=== PATIENT | male | born 1945 | race American Indian/Alaskan Native ===

== ENCOUNTER 2017-09-11 15:02 | Emergency (ER) | payer MEDICARE ==
[2017-09-11 15:02] VITALS: BMI 25.0
[2017-09-11 15:11] VITALS: TEMP 97.6
--- NOTE | 2017-09-11 15:38 | C.PDOC ---
History Of Present Illness 71 year old male presents to the ED with c/o new onset urinary retention since yesterday. Patient c/o "urine dribs and drabs." Reports pelvic distention. Denies nausea, vomiting, fever, history of BPH. NEW ONSET URINARY RETENTION SINCE YEST. CO "URINE DRIBS AND DRABS", +PELVIC DISTENTION. NO NV, FEVER. DENIES HO BPH EXAM MOD DIST NONTOXIC ABD +SUPRAPUB DIST NONTEND REMAINDER NEG Time Seen by Provider: 09/11/17 15:25 Chief Complaint (Nursing): Male Genitourinary History Per: Patient History/Exam Limitations: no limitations Onset/Duration Of Symptoms: Hrs Current Symptoms Are (Timing): Still Present Associated Symptoms: denies: Fever, Chills, Vomiting Past Medical History Reviewed: Historical Data, Nursing Documentation, Vital Signs Vital Signs: Last Vital Signs Temp 97.6 F 09/11/17 15:10 Pulse 78 09/11/17 17:11 Resp 16 09/11/17 17:11 BP 135/84 09/11/17 17:11 Pulse Ox 98 09/11/17 17:11 - Medical History PMH: No Chronic Diseases Surgical History: No Surg Hx Family History: States: Unknown Family Hx - Social History Hx Alcohol Use: Yes Hx Substance Use: No - Immunization History Hx Tetanus Toxoid Vaccination: No Hx Influenza Vaccination: No Hx Pneumococcal Vaccination: No Review Of Systems Constitutional: Negative for: Fever Gastrointestinal: Negative for: Vomiting Genitourinary: Positive for: Other (urinary retention ) Physical Exam - Physical Exam Appears: Non-toxic, Other (in moderate distress ) Skin: Normal Color, Warm, Dry Head: Atraumatic, Normacephalic Eye(s): bilateral: Normal Inspection Oral Mucosa: Moist Neck: Supple Chest: Symmetrical, No Deformity, No Tenderness Cardiovascular: Rhythm Regular, No Murmur Respiratory: Normal Breath Sounds, No Rales, No Rhonchi, No Wheezing Gastrointestinal/Abdominal: Soft, No Tenderness, Distention (suprapubic ), No Guarding, No Rebound Extremity: Normal ROM, Capillary Refill (less than 2 seconds ) Neurological/Psych: Oriented x3, Normal Speech, Normal Cognition ED Course And Treatment O2 Sat by Pulse Oximetry: 99 (on RA) Pulse Ox Interpretation: Normal Reevaluation Time: 16:50 Reassessment Condition: Improved (ASYMPT. +UO. ADVISED NEED FOR FU) Disposition Counseled Patient/Family Regarding: Studies Performed, Diagnosis, Need For Followup, Rx Given - Disposition Referrals: Wing Torres Jr., MD [Staff Provider] - [employer] [facility] [Outside] [facility] [Outside] [facility] [Outside] Disposition: HOME/ ROUTINE Disposition Time: 16:51 Condition: IMPROVED Prescriptions: Tamsulosin [Flomax] 0.4 mg PO DAILY #14 cap Instructions: Narayanan Catheter, Male, Urinary Retention (DC) Forms: [employer] (Irish) - Clinical Impression Clinical Impression: Urinary retention - Scribe Statement The provider has reviewed the documentation as recorded by the Scribe (Hortencia Rogers) Provider Attestation: All medical record entries made by the Scribe were at my direction and personally dictated by me. I have reviewed the chart and agree that the record accurately reflects my personal performance of the history, physical exam, medical decision making, and the department course for this patient. I have also personally directed, reviewed, and agree with the discharge instructions and disposition.
[2017-09-11 15:58] LABS: URINE BILIRUBIN NEGATIVE (NEGATIVE); URINE BLOOD 2+ (NEGATIVE); URINE CLARITY Clear (Clear); URINE COLOR Yellow (YELLOW); URINE GLUCOSE (UA) NORMAL (Normal); URINE LEUKOCYTE ESTERASE NEG Leu/uL (Negative); URINE PROTEIN NEGATIVE (NEGATIVE); URINE UROBILINOGEN NORMAL mg/dL (0.2-1.0)
[2017-09-11 17:12] VITALS: BP 135/84; PULSE 78; RESP 16
[2017-09-11 19:01] VITALS: O2SAT 99
== END 2017-09-11 17:12 | disposition home or self-care (01) ==
LOC: C.ER 15:02
DX: R33.9 Retention of urine, unspecified (principal)

== ENCOUNTER 2017-09-17 10:11 | Emergency (ER) | payer MEDICARE ==
[2017-09-17 10:11] VITALS: BMI 25.0
[2017-09-17 11:29] VITALS: RESP 18
--- NOTE | 2017-09-17 11:36 | C.PDOC ---
History Of Present Illness 71 year old male presents to the emergency department for removal of a Narayanan catheter. Patient was seen in the ED on 09-11-17 for urinary retention but was unable to follow up with urology due to insurance issues. Patient complains of some discomfort at the tip of his penis, especially when the Narayanan catheter moves. Patient denies abdominal pain, fever, and chills. Time Seen by Provider: 09/17/17 11:12 Chief Complaint (Nursing): Male Genitourinary History Per: Patient History/Exam Limitations: no limitations Onset/Duration Of Symptoms: Days (6) Current Symptoms Are (Timing): Still Present Quality Of Discomfort: "Pain" Associated Symptoms: denies: Fever, Chills, Other (abdominal pain) Past Medical History Reviewed: Historical Data, Nursing Documentation, Vital Signs Vital Signs: Last Vital Signs Temp 97.8 F 09/17/17 13:51 Pulse 78 09/17/17 13:51 Resp 18 09/17/17 13:51 BP 174/81 H 09/17/17 13:51 Pulse Ox 97 09/17/17 14:17 - Medical History PMH: No Chronic Diseases Surgical History: No Surg Hx Family History: States: No Known Family Hx - Social History Hx Alcohol Use: Yes Hx Substance Use: No - Immunization History Hx Tetanus Toxoid Vaccination: No Hx Influenza Vaccination: No Hx Pneumococcal Vaccination: No Review Of Systems Constitutional: Negative for: Fever, Chills Gastrointestinal: Negative for: Abdominal Pain Genitourinary: Positive for: Penile Pain (with movement of Narayanan catheter) Physical Exam - Physical Exam Appears: Non-toxic, No Acute Distress Skin: Normal Color, Warm Gastrointestinal/Abdominal: Bowel Sounds (good), Soft, No Tenderness, No Distention, No Guarding, No Rebound Male Genital: Circumcised, Other (abrasion at the tip of the penis to the left of the urethral meatus) ED Course And Treatment O2 Sat by Pulse Oximetry: 97 (RA) Pulse Ox Interpretation: Normal Progress Note: Plan: Urine Culture. Discontinue Narayanan Catheter. Urinalysis Medical Decision Making Medical Decision Making: Patient informed that he will be kept here for further monitoring to see if he is able to void himself. Otherwise, patient may need reinsertion of Narayanan Catheter. 1346 pt able to void on his own easily. will d/c with antibiotics and urology follow up. advised to return to ED if unable to void. Disposition Counseled Patient/Family Regarding: Studies Performed, Diagnosis, Need For Followup, Rx Given - Disposition Referrals: Wing Torres Jr., MD [Staff Provider] - Tae Bishop MD [Staff Provider] - Lucila Bishop MD [Staff Provider] - Marcin Loera MD [Staff Provider] - Disposition: HOME/ ROUTINE Disposition Time: 14:14 Condition: GOOD Additional Instructions: Please take antibiotics as prescribed, Please follow up in medical clinic and with urology as soon as possible. Return to ER for any further difficulties urinating or any other concerns. Finish taking Tamulosin (flomax). Prescriptions: Ciprofloxacin [Cipro] 500 mg PO BID #8 tab Instructions: Urinary Tract Infection, Adult (DC) Forms: [email or web address] (Japanese), General Discharge Instructions - Clinical Impression Clinical Impression: UTI (urinary tract infection), Encounter for Narayanan catheter removal - PA / LADLE PULLER / Resident Statement MD/DO has reviewed & agrees with the documentation as recorded. - Scribe Statement The provider has reviewed the documentation as recorded by the Scribe (Wilber Macias) All medical record entries made by the Scribe were at my direction and personally dictated by me. I have reviewed the chart and agree that the record accurately reflects my personal performance of the history, physical exam, medical decision making, and the department course for this patient. I have also personally directed, reviewed, and agree with the discharge instructions and disposition.
[2017-09-17 13:41] LABS: SQUAMOUS EPITHIAL < 1 /hpf (0-5); URINE BACTERIA OCC (<OCC); URINE BILIRUBIN NEGATIVE (NEGATIVE); URINE BLOOD 3+ (NEGATIVE); URINE CLARITY Hazy (Clear); URINE COLOR Yellow (YELLOW); URINE GLUCOSE (UA) NORMAL (Normal); URINE LEUKOCYTE ESTERASE 3+ Leu/uL (Negative); URINE PROTEIN 1+ mg/dL (NEGATIVE); URINE UROBILINOGEN NORMAL mg/dL (0.2-1.0)
[2017-09-17 13:52] VITALS: BP 174/81; PULSE 78; TEMP 97.8
[2017-09-17 14:16] VITALS: O2SAT 97
== END 2017-09-17 14:22 | disposition home or self-care (01) ==
LOC: C.ER 10:11
DX: N39.0 Urinary tract infection, site not specified (principal); Z46.6 Encounter for fitting and adjustment of urinary device

== ENCOUNTER 2017-11-24 06:36 | Emergency (ER) | payer MEDICARE ==
[2017-11-24 06:36] VITALS: BMI 25.0
[2017-11-24 06:43] VITALS: TEMP 97.6
[2017-11-24 07:18] LABS: URINE BILIRUBIN NEGATIVE (NEGATIVE); URINE BLOOD NEGATIVE (NEGATIVE); URINE CLARITY Clear (Clear); URINE COLOR Yellow (YELLOW); URINE GLUCOSE (UA) NORMAL (Normal); URINE LEUKOCYTE ESTERASE NEG Leu/uL (Negative); URINE PROTEIN NEGATIVE (NEGATIVE); URINE UROBILINOGEN NORMAL mg/dL (0.2-1.0)
[2017-11-24 07:35] VITALS: BP 152/80; PULSE 60; RESP 16; O2SAT 98
--- NOTE | 2017-11-24 07:50 | C.PDOC ---
History Of Present Illness 72-year-old malepresents to the emergency department c/o of urinary retention since 04:00am today. Patient is complaining of suprapubic pain. He denies fever , chills, nausea/vomiting, dysuria, hematuria, or any other associated symptoms. Patient admits a Hx of similar episode two months ago, but pt did not follow up with urology as instructed. Time Seen by Provider: 11/24/17 07:09 Chief Complaint (Nursing): Male Genitourinary History Per: Patient History/Exam Limitations: no limitations Onset/Duration Of Symptoms: Hrs Current Symptoms Are (Timing): Still Present Severity: Moderate Quality Of Discomfort: "Pain" Associated Symptoms: Urinary Symptoms Past Medical History Reviewed: Historical Data, Nursing Documentation, Vital Signs Vital Signs: Last Vital Signs Temp 97.6 F 11/24/17 06:39 Pulse 60 11/24/17 07:34 Resp 16 11/24/17 07:34 BP 152/80 H 11/24/17 07:34 Pulse Ox 98 11/24/17 09:03 - Medical History PMH: No Chronic Diseases Family History: States: No Known Family Hx - Social History Hx Alcohol Use: Yes Hx Substance Use: No - Immunization History Hx Tetanus Toxoid Vaccination: No Hx Influenza Vaccination: No Hx Pneumococcal Vaccination: No Review Of Systems Constitutional: Negative for: Fever, Chills Cardiovascular: Negative for: Chest Pain Respiratory: Negative for: Cough, Shortness of Breath Gastrointestinal: Positive for: Abdominal Pain. Negative for: Nausea, Vomiting Genitourinary: Positive for: Other (urinkary retention). Negative for: Dysuria , Hematuria Physical Exam - Physical Exam Appears: Well, Non-toxic, In Acute Distress (in moderate distress) Skin: Normal Color, Warm, Dry, No Rash Eye(s): bilateral: Normal Inspection Oral Mucosa: Moist Cardiovascular: Rhythm Regular Respiratory: Normal Breath Sounds, No Rales, No Rhonchi, No Wheezing Gastrointestinal/Abdominal: Bowel Sounds, Soft, Tenderness (suprapubic TTP and distension ), No Guarding, No Rebound Back: No CVA Tenderness Extremity: Normal ROM Neurological/Psych: Oriented x3 ED Course And Treatment O2 Sat by Pulse Oximetry: 98 (RA) Pulse Ox Interpretation: Normal Progress Note: Narayanan catheter inserted by nurse, approx 500cc of clear urine drained. UA, Ucx ordered - no UTU. Patient changed to leg bag and given PO Flomax. He was instructed to follow up with urology in 1-2 days WITHOUT FAIL. He understands he should return to ED if symptoms worsen. Reevaluation Time: 07:50 Reassessment Condition: Improved Disposition Counseled Patient/Family Regarding: Studies Performed, Diagnosis, Need For Followup, Rx Given - Disposition Referrals: Pramod Cotto MD [Staff Provider] - Disposition: HOME/ ROUTINE Disposition Time: 07:50 Condition: STABLE Additional Instructions: FOLLOW UP WITH UROLOGY IN 1-2 DAYS USE MEDICATION DIRECTED RETURN TO ER IF SYMPTOMS WORSEN/RETURN Prescriptions: Tamsulosin [Flomax] 0.4 mg PO DAILY #5 cap Instructions: Urinary Retention (DC) Forms: [employer] (Azerbaijani) Print Language: COMORAN - POA Present On Arrival: None - Clinical Impression Clinical Impression: Urinary retention - Scribe Statement The provider has reviewed the documentation as recorded by the Marielle Yu All medical record entries made by the Landyibkathleen were at my direction and personally dictated by me. I have reviewed the chart and agree that the record accurately reflects my personal performance of the history, physical exam, medical decision making, and the department course for this patient. I have also personally directed, reviewed, and agree with the discharge instructions and disposition.
== END 2017-11-24 08:21 | disposition home or self-care (01) ==
LOC: C.ER 06:36
DX: R33.9 Retention of urine, unspecified (principal)